=== PATIENT | male | born 1970 | race Caucasian/White ===

== ENCOUNTER → 2021-01-22 | Outpatient (CLI) | payer OTHER ==
--- NOTE | 2021-01-22 16:57 | KCIC ---
STUDY: MRI of the right shoulder without contrast INDICATION: Right shoulder pain and limited range of motion. COMPARISON: None. TECHNIQUE: Multiplanar MR imaging of the right shoulder performed without the use of intravenous or i ntra-articular contrast. FINDINGS: AC joint: Moderate hypertrophic arthropathy. Mild subacromial subdeltoid bursitis. Rotator cuff: Full-thickness tear of the supraspinatus at the footprint beginning just posterior to t he leading edge and extending to the infraspinatus junction. The tear defect measures up to 13 mm med iolateral by 23 mm AP. Undersurface fibers retracted slightly more medially than bursal sided fibers as seen on image 11 series 7. Background supraspinatus tendinosis. Mild infraspinatus tendinosis. Int act teres minor and subscapularis. Rotator cuff muscular bulk is maintained. No denervation edema. Labrum: Heterogeneous morphology at the lower half of the labrum without a well delineated fluid sign al tear defect. Note is made that a nondisplaced, undersurface tear at the posterior/inferior labrum is difficult to exclude such as on image 18 series 4. Long head biceps tendon: Intact and normally located. Cartilage: Possible occult chondrosis at the far superior aspect of the glenoid given localized osseo us cystic change at this location. No discrete humeral head chondral defect. Bones: Mild degenerative irregularity of the greater tuberosity deep to the supraspinatus attachment. Minimal bone marrow edema at this location and possibly with tiny cortical fragments within the supr aspinatus tear defect, image 10 series 7. Miscellaneous: No joint effusion. Unremarkable axillary soft tissues. Impression: 1. Full-thickness supraspinatus tear off the footprint beginning just posterior to the leading edge and extending to the infraspinatus junction with the tear defect measuring up to 13 mm mediolateral b y 23 mm AP. Possible tiny cortical fragments relating to tendon avulsion suspended within the tear de fect, image 10 series 7. Background tendinosis. Less pronounced tendinosis of the infraspinatus. Musc ular bulk is maintained. 2. Possible very subtle undersurface tear at the posterior/inferior labrum (image 18 series 4) but d ifficult to confirm without intra-articular contrast. The long head biceps is intact and normally loc ated. 3. Cystic change at the superior aspect of the glenoid which could indicate occult chondrosis at thi s location. 4. Moderate hypertrophic AC joint arthrosis. Mild subacromial subdeltoid bursitis. Electronically signed by: JULIEN MARY MD (01/22/2021 4:54 PM) [id number]
== END ==
LOC: KCIC MRI 10:38
PROVIDERS: ATTEND Physician Assistant Surgical
DX: M75.121 Complete rotator cuff tear or rupture of right shoulder, not specified as traumatic (principal); M19.011 Primary osteoarthritis, right shoulder; M75.51 Bursitis of right shoulder; M25.811 Other specified joint disorders, right shoulder
CPT/HCPCS: 73221